=== PATIENT | male | born 1960 | race Caucasian/White ===

== ENCOUNTER 2017-11-28 11:47 | Observation (INO) | payer MEDICAID ==
[~2017-11-28] VITALS: Ht 180.3 cm; Wt 104.3 kg
[2017-11-28] MEDS ORDERED: ADIPEX-P37.5 M1 PO (11:53)
[2017-11-28] MEDS ORDERED: BYSTOLIC2.5 MG PO (11:53)
[2017-11-28] MEDS ORDERED: LIPOFEN50 MG PO (11:54)
[2017-11-28] MEDS ORDERED: PRINZIDE 20/12.1 TA1 PO (11:55)
[2017-11-28] MEDS ORDERED: LOVASTATIN20 MG PO (11:55)
[2017-11-28] MEDS ORDERED: HALOPERIDOL1 MG PO (11:55)
[2017-11-28] MEDS ORDERED: JARDIANCE25 MG PO (11:55)
[2017-11-28] MEDS ORDERED: REVATIO20 MG PO (11:56)
[2017-11-28] MEDS ORDERED: PROTONIX40 MG PO (11:56)
[2017-11-28] MEDS ORDERED: BACTROBAN CREAM15 GM (11:56)
[2017-11-28] MEDS ORDERED: GLUCOPHAGE1000 MG PO (11:56)
[2017-11-28] MEDS ORDERED: TOPAMAX50 MG PO (11:57)
[2017-11-28] MEDS ORDERED: TRULICITY1.5 MG/0.5 SC (11:57)
[2017-11-28 12:46] VITALS: BP 115/77
[2017-11-28 12:53] LABS: BASOPHILS 0.2 % (0-2); EOSINOPHILS 4.1 % (0-7); HEMATOCRIT 47.7 % (42.0-54.0); HEMOGLOBIN 16.5 g/dL (13.5-17.5); IMMATURE GRANULOCYTES 0.4 % (0-5); LYMPHOCYTES 20.8 % (15-50); MCH 28.5 pg (26.0-34.0); MCHC 34.6 g/dL (31.0-37.0); MCV 82.4 fL (80.0-100.0); MEAN PLATELET VOLUME 9.9 fL (7.4-10.4); MONOCYTES 10.2 % (2-11); NEUTROPHILS 64.3 % (40-80); PLATELET COUNT 266 10x3/uL (130-400); RBC 5.79 10x6/uL (4.20-6.10); RDW 13.7 % (11.5-14.5); WBC 13.8 10x3/uL (4.8-10.8)
[2017-11-28 13:01] VITALS: BP 115/76
[2017-11-28 13:20] LABS: ALBUMIN 3.5 g/dL (3.4-5.0); ALKALINE PHOSPHATASE 65 U/L (46-116); ALT (SGPT) 33 U/L (10-68); AMYLASE - SERUM 25 U/L (25-115); BILIRUBIN - TOTAL 0.74 mg/dL (0.2-1.3); CALC OSMOLALITY 282 mosm/kg (275-300); CALCIUM 8.5 mg/dL (8.5-10.1); CARBON DIOXIDE 30.2 mmol/L (21.0-32.0); CHLORIDE - SERUM 103 mmol/L (98-107); GLUCOSE 116 mg/dL (74-106); LIPASE 100 U/L (73-393); POTASSIUM - SERUM 4.1 mmol/L (3.5-5.1); PROTEIN - SERUM 7.2 g/dL (6.4-8.2); SODIUM 141 mmol/L (136-145); UREA NITROGEN 16 mg/dL (7-18); eGFR NON AFRICAN AMERICAN 82 mL/min (90-120)
[2017-11-28 14:46] VITALS: BP 132/75
[2017-11-28 17:18] VITALS: BP 132/75
[2017-11-28 23:06] VITALS: BP 116/80; BMI 32.1
[2017-11-29 05:15] VITALS: BP 126/80
[2017-11-29 06:12] LABS: BASOPHILS 0.2 % (0-2); EOSINOPHILS 4.8 % (0-7); HEMATOCRIT 44.9 % (42.0-54.0); HEMOGLOBIN 15.2 g/dL (13.5-17.5); IMMATURE GRANULOCYTES 0.4 % (0-5); LYMPHOCYTES 31.3 % (15-50); MCH 28.5 pg (26.0-34.0); MCHC 33.9 g/dL (31.0-37.0); MCV 84.1 fL (80.0-100.0); MEAN PLATELET VOLUME 10.1 fL (7.4-10.4); NEUTROPHILS 52.3 % (40-80); PLATELET COUNT 253 10x3/uL (130-400); RBC 5.34 10x6/uL (4.20-6.10)
[2017-11-29 06:21] LABS: WBC 8.4 10x3/uL (4.8-10.8)
[2017-11-29 06:41] LABS: ALBUMIN 3.1 g/dL (3.4-5.0); ANION GAP 10.3 mmol/L (8-16); BILIRUBIN - TOTAL 0.88 mg/dL (0.2-1.3); CALCIUM 8.1 mg/dL (8.5-10.1); CARBON DIOXIDE 29.8 mmol/L (21.0-32.0); CREATININE - SERUM 1.1 mg/dL (0.6-1.3); POTASSIUM - SERUM 4.1 mmol/L (3.5-5.1); PROTEIN - SERUM 6.4 g/dL (6.4-8.2)
[2017-11-29 08:49] VITALS: BP 130/81
[2017-11-29 12:04] VITALS: BP 120/78
[2017-11-29 14:58] VITALS: Ht 180.3 cm; Wt 104.3 kg
[2017-11-29 20:00] VITALS: BP 146/84
[2017-11-30 03:22] VITALS: BP 137/91
[2017-11-30 07:33] LABS: BASOPHILS 0.4 % (0-2); EOSINOPHILS 3.9 % (0-7); HEMATOCRIT 45.8 % (42.0-54.0); HEMOGLOBIN 15.5 g/dL (13.5-17.5); IMMATURE GRANULOCYTES 0.4 % (0-5); LYMPHOCYTES 22.3 % (15-50); MCHC 33.8 g/dL (31.0-37.0); MCV 82.7 fL (80.0-100.0); MONOCYTES 8.4 % (2-11); NEUTROPHILS 64.6 % (40-80); PLATELET COUNT 277 10x3/uL (130-400); RBC 5.54 10x6/uL (4.20-6.10); RDW 13.4 % (11.5-14.5); WBC 9.6 10x3/uL (4.8-10.8)
[2017-11-30 07:47] LABS: ALBUMIN 2.9 g/dL (3.4-5.0); ALKALINE PHOSPHATASE 60 U/L (46-116); ALT (SGPT) 25 U/L (10-68); BILIRUBIN - TOTAL 0.66 mg/dL (0.2-1.3); CALC OSMOLALITY 277 mosm/kg (275-300); CALCIUM 8.4 mg/dL (8.5-10.1); CARBON DIOXIDE 27.6 mmol/L (21.0-32.0); CHLORIDE - SERUM 103 mmol/L (98-107); CREATININE - SERUM 0.9 mg/dL (0.6-1.3); GLUCOSE 137 mg/dL (74-106); POTASSIUM - SERUM 4.1 mmol/L (3.5-5.1); PROTEIN - SERUM 6.5 g/dL (6.4-8.2); SODIUM 138 mmol/L (136-145); UREA NITROGEN 13 mg/dL (7-18); eGFR NON AFRICAN AMERICAN > 90 mL/min (90-120)
[2017-11-30 08:26] VITALS: BP 157/91
[2017-11-30 12:42] VITALS: BP 151/91
[2017-11-30 16:35] VITALS: BP 146/82
[2017-11-30 22:27] VITALS: BP 148/95
[2017-12-01 05:08] VITALS: BP 146/90
[2017-12-01 06:33] LABS: BASOPHILS 0.6 % (0-2); EOSINOPHILS 3.5 % (0-7); HEMATOCRIT 45.9 % (42.0-54.0); HEMOGLOBIN 15.8 g/dL (13.5-17.5); IMMATURE GRANULOCYTES 0.4 % (0-5); LYMPHOCYTES 30.8 % (15-50); MCH 28.2 pg (26.0-34.0); MCHC 34.4 g/dL (31.0-37.0); MCV 81.8 fL (80.0-100.0); MEAN PLATELET VOLUME 10.1 fL (7.4-10.4); MONOCYTES 7.5 % (2-11); NEUTROPHILS 57.2 % (40-80); PLATELET COUNT 278 10x3/uL (130-400); RBC 5.61 10x6/uL (4.20-6.10); RDW 13.3 % (11.5-14.5); WBC 8.2 10x3/uL (4.8-10.8)
[2017-12-01 07:09] LABS: ALKALINE PHOSPHATASE 59 U/L (46-116); ALT (SGPT) 26 U/L (10-68); BILIRUBIN - TOTAL 0.47 mg/dL (0.2-1.3); CALC OSMOLALITY 281 mosm/kg (275-300); CALCIUM 8.6 mg/dL (8.5-10.1); CARBON DIOXIDE 27.1 mmol/L (21.0-32.0); CHLORIDE - SERUM 104 mmol/L (98-107); CREATININE - SERUM 0.8 mg/dL (0.6-1.3); GLUCOSE 144 mg/dL (74-106); POTASSIUM - SERUM 3.9 mmol/L (3.5-5.1); PROTEIN - SERUM 6.8 g/dL (6.4-8.2); SODIUM 139 mmol/L (136-145); UREA NITROGEN 14 mg/dL (7-18); eGFR NON AFRICAN AMERICAN > 90 mL/min (90-120)
[2017-12-01 08:43] VITALS: BP 155/98
[2017-12-01] MEDS ORDERED: HYDROCODON-ACE1 EAC7 PO (12:48)
[2017-12-01 13:33] VITALS: BP 142/79
== END 2017-12-01 16:00 | disposition home or self-care (01) ==
LOC: D.ER 11:47 → D.EDHOLD 16:43 → D.MS 16:43 → OBSVTIME 16:44 → D.MS 17:51
PROVIDERS: Family Medicine
DX: K82.8 Other specified diseases of gallbladder (principal); E11.9 Type 2 diabetes mellitus without complications; I10 Essential (primary) hypertension